=== PATIENT | female | born 1985 | race American Indian/Alaskan Native ===

== ENCOUNTER 2024-05-15 01:39 | Emergency (ER) | payer OTHER ==
[~2024-05-15] VITALS: Ht 162.6 cm; Wt 89.0 kg
[2024-05-15] MEDS ORDERED: LORazepam 2 MG/ML VIAL IV ONE ×2 (01:45→02:00)
[2024-05-15 01:52] LABS: BASOPHILS 0.4 % (0-2); EOSINOPHILS 1.3 % (0-6); HEMATOCRIT 32.9 % (35.0-50.0); HEMOGLOBIN 9.6 g/dL (12.0-18.0); LYMPHOCYTES 36.1 % (24-44); MCH 22.4 (27-36); MCHC 29.1 g/dl (30-36); MONOCYTES 7.8 % (0-12); NEUTROPHILS 54.4 % (39-80); PLATELET COUNT 422 K/uL (140-440); RBC 4.26 M/ul (4.3-5.7); RDW 18.8 (10.5-15.0)
[2024-05-15] MEDS ORDERED: DEXTROSE 5% 100 ML IV ONE (01:53)
[2024-05-15] MEDS ORDERED: levETIRAcetam 4,500 MG in DEXTROSE 5% 100 ML IV ONE (02:00)
[2024-05-15] MEDS ORDERED: propofoL 100 ML IV ONE (02:00)
[2024-05-15 02:06] LABS: ALBUMIN/GLOBULIN RATIO 0.87 (1.1-2.4); ALCOHOL, MEDICAL <3 ng/dL (<3); ALKALINE PHOSPHATASE 64 U/L (46-116); ALT (SGPT) 16 U/L (14-59); ANION GAP 23.7 (7-21); AST (SGOT) 22 U/L (15-37); BILIRUBIN, TOTAL 0.2 ng/dL (0.2-1.0); BUN/CREATININE RATIO 4.65 (6.0-28.6); CALCIUM 8.3 mg/dL (8.5-10.1); CARBON DIOXIDE 18 mmol/L (21-32); CHLORIDE 101 mmol/L (98-107); CREATININE, SERUM 1.29 mg/dL (0.55-1.02); GLOMERULAR FILTRATION RATE,EST 53 mL/min (>60); MAGNESIUM 1.6 mg/dL (1.8-2.4); POTASSIUM 2.7 mmol/L (3.5-5.1); PROTEIN, TOTAL 8.6 g/dL (6.4-8.2); UREA NITROGEN 6 mg/dL (7-18)
[2024-05-15] MEDS ORDERED: LACTATED RINGER'S 1,000 ML IV ONE ×2 (02:15→04:15)
[2024-05-15] MEDS ORDERED: propofoL 100 ML IV SCH (02:15)
[2024-05-15] MEDS ORDERED: ETOMIDATE 40 MG/20 ML VIAL IV ONE (02:15)
[2024-05-15] MEDS ORDERED: MIDAZOLAM HCL 100 MG in DEXTROSE 5% 80 ML IV SCH (02:15)
[2024-05-15] MEDS ORDERED: ROCURONIUM BROMIDE 50 MG/5 ML VIAL IV ONE (02:15)
[2024-05-15 02:25] LABS: BILIRUBIN, URINE NEGATIVE (negative); BLOOD/HGB, URINE MODERATE (Negative); KETONE, URINE NEGATIVE (Negative); LEUK ESTERASE, URINE TRACE (negative); NITRITE, URINE NEGATIVE (negative)
[2024-05-15 02:29] LABS: BASE EXCESS, BLOOD GAS -10.4 mmol/L (-2-2); HCO3, BLOOD GAS 17.4 mmol/L (22-26); O2 SATURATION, BLOOD GAS > 100.0 % (95.0-100.0); OXYGEN RECEIVED, BLOOD GAS VENT; PCO2, BLOOD GAS 46.5 mmHg (35-45); PH, BLOOD GAS 7.18 (7.35-7.45); PO2, BLOOD GAS 446 mmHg (80-100); TOTAL CO2, BLOOD GAS 18.9
[2024-05-15 02:30] LABS: CRYSTALS, URINE NONE SEEN (0-1+); EPITHELIAL CELLS, URINE SQUAMOUS 1+ /lpf (0-1+); RED BLOOD CELLS, URINE 0-1 /hpf (0-5)
[2024-05-15 02:31] LABS: BACTERIA, URINE 1+ /hpf (negative); CASTS, URINE NONE SEEN \\lpf; COLLECTION TYPE, URINE CLEAN CATCH; REFLEX CULTURE, URINE No (No)
[2024-05-15 02:40] LABS: AMPHETAMINES, URINE NEGATIVE (NEGATIVE); BARBITURATES, URINE NEGATIVE (NEGATIVE); BENZODIAZEPINE, URINE POSITIVE (NEGATIVE); BUPRENORPHINE, URINE NEGATIVE (NEGATIVE); CANNABINOID, URINE POSITIVE (NEGATIVE); COCAINE, URINE NEGATIVE (NEGATIVE); ECSTASY, URINE NEGATIVE (NEGATIVE); FENTANYL, URINE NEGATIVE (NEGATIVE); METHADONE, URINE NEGATIVE (NEGATIVE); OPIATES, URINE NEGATIVE (NEGATIVE); OXYCODONE, URINE NEGATIVE (NEGATIVE); PHENCYCLIDINE, URINE NEGATIVE (NEGATIVE)
[2024-05-15] MEDS ORDERED: POTASSIUM CHLORIDE 10 MEQ/100 ML BAG IV SCH (02:45)
[2024-05-15] MEDS ORDERED: propofoL 200 MG/20 ML VIAL IV ONE (03:00)
[2024-05-15] MEDS ORDERED: SODIUM CHLORIDE 0.9% 1,000 ML IV PRN (03:00)
[2024-05-15 03:29] LABS: HCO3, BLOOD GAS 22.2 mmol/L (22-26); O2 SATURATION, BLOOD GAS 95.4 % (95.0-100.0); PCO2, BLOOD GAS 39.2 mmHg (35-45); PH, BLOOD GAS 7.36 (7.35-7.45); TOTAL CO2, BLOOD GAS 23.4
[2024-05-15] MEDS ORDERED: CEFTRIAXONE/SODIUM CHLORIDE 2 GM/100 ML PIGGYBACK IV ONE (03:30)
[2024-05-15 04:10] LABS: LACTIC ACID, BLOOD 4.1 mmol/L (0.4-2.0)
[2024-05-15] MEDS ORDERED: MULTIVITAMINS 10 ML,FOLIC ACID 1 MG,THIAMINE HCL 100 MG in SODIUM CHLORIDE 0.9% 1,000 ML IV SCH (04:15)
[2024-05-15] MEDS ORDERED: FOLIC ACID 1 MG/0.2 ML ML ONE (04:18)
[2024-05-15] MEDS ORDERED: MULTIVITAMINS 10 ML,FOLIC ACID 1 MG,THIAMINE HCL 100 MG in SODIUM CHLORIDE 0.9% 1,000 ML IV PRN (04:30)
[2024-05-15 06:03] LABS: LACTIC ACID, BLOOD 3.5 mmol/L (0.4-2.0)
[2024-05-15 06:30] VITALS: BP 99/71
--- NOTE | 2024-05-15 21:34 | EKG ---
[facility] [address] [place] [address] Signed Sinus tachycardia Nonspecific ST abnormality Abnormal ECG No previous ECGs available Confirmed by Argenis Mora MD () on 05/15/2024 9:34:07 PM Electronically Signed By: ARGENIS MORA MD [id number] PATIENT NAME: PIPER NELSON Electrocardiogram DATE OF : 81 PHYSICIAN: ARGENIS MORA MD REPORT #: [id number] REPORT IS CONFIDENTIAL AND NOT TO BE RELEASED WITHOUT AUTHORIZATION
== END 2024-05-15 07:45 | disposition short-term general hospital (02) ==
LOC: ED 01:39
PROVIDERS: Internal Medicine
DX: G40.401 Other generalized epilepsy and epileptic syndromes, not intractable, with status epilepticus (principal)
CPT/HCPCS: 31500; 36415; 36600; 51702; 70450; 71045; 72125; 80053; 80307; 81001; 82803; 83605; 83735; 84703; 85025; 87040; 93005; 93010; 94002; 94799; 99285-25; G0480; J0696; J1953; J2060; J2250; J2704; J3411; J3480; J7030; J7121